=== PATIENT | male | born 1975 ===

== ENCOUNTER 2021-02-25 08:26 | Inpatient (IN) ==
[2021-02-25 09:28] LABS: Basophils % 0.7 % (0.0-0.8); Eosinophils # 0.3 10*3/uL (0.0-0.87); Eosinophils % 5.2 % (0.00-10.9); Hematocrit 25.9 VOL% (42.0-52.0); Hemoglobin 8.4 GM/DL (14.0-18.0); Immature Granulocytes % 0.5 %; Immature Granulocytes Absolute 0.03 #; Lymphocytes # 1.6 10*3/uL (1.4-4.0); Lymphocytes % 27.7 % (21.2-54.2); Mean Corpuscular HGB Conc 32.4 GM/DL (32-36); Mean Platelet Volume 10.3 FL (9.6-12.0); Monocytes % 4.1 % (1.7-12.7); Neutrophils % 61.8 % (38.7-73.9); Platelet Count 109 T/CUMM (130-400); Red Blood Count 2.67 MC/CUMM (3.8-5.5); Red Cell Distribution Width 15.4 % (9.3-17.3); White Blood Count 5.8 T/CUMM (4-12)
[2021-02-25 09:42] LABS: Albumin 2.9 G/DL (3.4-5.0); Bilirubin,Total 0.5 MG/DL (0.20-1.00); Calcium 5.9 MG/DL (8.5-10.1); Osmolality,Calculated 332.3 MOS/KG (273-304); Potassium 4.5 MMOL/L (3.5-5.1); Total Protein 8.3 G/DL (6.4-8.2)
[2021-02-25 09:46] LABS: Hypochromasia 1+; Microcytosis 1+; Platelet Estimate Decreased
[2021-02-25] MEDS ORDERED: DEXTROSE 50% 25 GM/50 ML SYRINGE IV STA (10:41)
[2021-02-25] MEDS ORDERED: GLUCAGON 1 MG VIAL IM PRN (10:43)
[2021-02-25] MEDS ORDERED: ACETAMINOPHEN 325 MG TABLET PO PRN (10:43)
[2021-02-25] MEDS ORDERED: DOCUSATE SODIUM 100 MG CAPSULE PO PRN (10:43)
[2021-02-25] MEDS ORDERED: DEXTROSE 50% 25 GM/50 ML SYRINGE IV PRN (10:43)
[2021-02-25] MEDS ORDERED: ONDANSETRON 4 MG/2 ML VIAL IV PRN (10:43)
[2021-02-25 11:05] LABS: ABG Base Excess -15.5 MMOL/L (-2.5-2.5); ABG HCO3 12.4 MMOL/L (20-26); ABG PCO2 27.2 MM HG (35-48); ABG TCO2 10.6 MMOL/L (23-27)
[2021-02-25 11:55] LABS: Hepatitis B Core IgM Quant 0.11 Index; Hepatitis B Surface Ag Quant < 0.10 Index; Hepatitis B Surface Ag Result Non-Reactive (NonReactive); Hepatitis C Virus Ab Quant 0.27 Index; Hepatitis C Virus Ab Result Non-Reactive (NonReactive)
[2021-02-25] MEDS: HEPARIN 5,000 UNIT/1 ML VIAL SUBCUT SCH (12:02)
[2021-02-25] MEDS ORDERED: HEPARIN 10,000 UNIT/10 ML VIAL IV SCH (13:15)
[2021-02-25] MEDS ORDERED: hydrALAZINE 20 MG/1 ML VIAL IV PRN (16:39)
[2021-02-25 17:37] LABS: Allen Test Positive; Pt O2 Delivery Device Room Air
[2021-02-25 18:07] LABS: ABG Base Excess -3.9 MMOL/L (-2.5-2.5); ABG HCO3 21.2 MMOL/L (20-26); ABG Oxygen Saturation 99.2 % (95-100); ABG PCO2 28.1 MM HG (35-48); ABG PH 7.446 (7.35-7.45)
[2021-02-25] MEDS: amLODIPine 10 MG TABLET PO SCH (18:43)
[2021-02-25 18:52] LABS: Albumin 2.7 G/DL (3.4-5.0); Bilirubin,Total 0.6 MG/DL (0.20-1.00); Calcium 7.1 MG/DL (8.5-10.1); Osmolality,Calculated 301.5 MOS/KG (273-304); Potassium 3.3 MMOL/L (3.5-5.1); Total Protein 7.7 G/DL (6.4-8.2)
[2021-02-25] MEDS ORDERED: MAGNESIUM SULF RIDER 1 GM/100 ML PREMIX IV ONE ×2 (19:02→21:30)
[2021-02-25] MEDS ORDERED: POTASSIUM CHLORIDE 10 MEQ TABLET PO ONE (19:03)
[2021-02-26] MEDS: HEPARIN 5,000 UNIT/1 ML VIAL SUBCUT SCH ×2 (00:59→21:10)
[2021-02-26 05:44] LABS: Albumin 2.6 G/DL (3.4-5.0); Bilirubin,Total 1.1 MG/DL (0.20-1.00); Calcium 6.8 MG/DL (8.5-10.1); Potassium 3.8 MMOL/L (3.5-5.1); Total Protein 7.3 G/DL (6.4-8.2)
[2021-02-26 06:18] LABS: Basophils % 0.6 % (0.0-0.8); Eosinophils # 0.3 10*3/uL (0.0-0.87); Eosinophils % 5.9 % (0.00-10.9); Hematocrit 25.6 VOL% (42.0-52.0); Hemoglobin 8.7 GM/DL (14.0-18.0); Immature Granulocytes % 0.4 %; Immature Granulocytes Absolute 0.02 #; Lymphocytes # 1.6 10*3/uL (1.4-4.0); Lymphocytes % 33.1 % (21.2-54.2); Mean Corpuscular Volume 94.8 FL (87-102); Mean Platelet Volume 10.6 FL (9.6-12.0); Monocytes % 6.5 % (1.7-12.7); Neutrophils % 53.5 % (38.7-73.9); Platelet Count 108 T/CUMM (130-400); Red Cell Distribution Width 14.8 % (9.3-17.3); White Blood Count 4.9 T/CUMM (4-12)
[2021-02-26] MEDS: amLODIPine 10 MG TABLET PO SCH (09:27)
[2021-02-26] MEDS: PANTOPRAZOLE 40 MG TABLET PO SCH (09:28)
[2021-02-26] MEDS: hydrALAZINE 25 MG TABLET PO SCH (21:09)
[2021-02-27 05:39] LABS: Basophils % 0.4 % (0.0-0.8); Eosinophils # 0.3 10*3/uL (0.0-0.87); Eosinophils % 6.4 % (0.00-10.9); Hematocrit 26.1 VOL% (42.0-52.0); Hemoglobin 8.6 GM/DL (14.0-18.0); Immature Granulocytes % 0.2 %; Immature Granulocytes Absolute 0.01 #; Lymphocytes # 1.7 10*3/uL (1.4-4.0); Lymphocytes % 35.3 % (21.2-54.2); Mean Corpuscular Volume 95.3 FL (87-102); Mean Platelet Volume 10.4 FL (9.6-12.0); Monocytes % 7.9 % (1.7-12.7); Neutrophils % 49.8 % (38.7-73.9); Platelet Count 113 T/CUMM (130-400); Red Blood Count 2.74 MC/CUMM (3.8-5.5); Red Cell Distribution Width 14.3 % (9.3-17.3); White Blood Count 4.8 T/CUMM (4-12)
[2021-02-27 06:08] LABS: Calcium 7.4 MG/DL (8.5-10.1); Osmolality,Calculated 289.4 MOS/KG (273-304); Potassium 3.8 MMOL/L (3.5-5.1)
[2021-02-27 06:19] LABS: Hypochromasia 1+; Platelet Estimate Adequate
[2021-02-27] MEDS: hydrALAZINE 25 MG TABLET PO SCH ×3 (09:11→20:56)
[2021-02-27] MEDS: amLODIPine 10 MG TABLET PO SCH (09:11)
[2021-02-27] MEDS: PANTOPRAZOLE 40 MG TABLET PO SCH (09:11)
[2021-02-27] MEDS: HEPARIN 5,000 UNIT/1 ML VIAL SUBCUT SCH ×2 (09:12→20:56)
[2021-02-28 13:16] LABS: Basophils % 0.7 % (0.0-0.8); Eosinophils # 0.4 10*3/uL (0.0-0.87); Eosinophils % 7.6 % (0.00-10.9); Hematocrit 24.5 VOL% (42.0-52.0); Immature Granulocytes % 0.2 %; Immature Granulocytes Absolute 0.01 #; Lymphocytes # 1.7 10*3/uL (1.4-4.0); Lymphocytes % 37.7 % (21.2-54.2); Mean Corpuscular HGB Conc 32.7 GM/DL (32-36); Mean Corpuscular Volume 95.7 FL (87-102); Mean Platelet Volume 10.4 FL (9.6-12.0); Monocytes % 6.3 % (1.7-12.7); Neutrophils % 47.5 % (38.7-73.9); Platelet Count 113 T/CUMM (130-400); Red Blood Count 2.56 MC/CUMM (3.8-5.5); Red Cell Distribution Width 14.6 % (9.3-17.3); White Blood Count 4.6 T/CUMM (4-12)
[2021-02-28] MEDS: hydrALAZINE 25 MG TABLET PO SCH ×3 (13:20→20:14)
[2021-02-28] MEDS: HEPARIN 5,000 UNIT/1 ML VIAL SUBCUT SCH ×2 (13:20→20:14)
[2021-02-28] MEDS: amLODIPine 10 MG TABLET PO SCH (13:20)
[2021-02-28] MEDS: PANTOPRAZOLE 40 MG TABLET PO SCH (13:21)
[2021-02-28 13:47] LABS: Alanine Aminotransferase < 9 U/L (16-61); Alkaline Phosphatase 94 U/L (45-117); Aspartate Amino Transferase 10 U/L (0-37)
[2021-02-28 13:48] LABS: Albumin 2.7 G/DL (3.4-5.0); Blood Urea Nitrogen 52 MG/DL (7-18); Carbon Dioxide 22 MMOL/L (21-32); Estimated Glom Filtration Rate 7 ML/MIN; Glucose 74 MG/DL (74-106); Osmolality,Calculated 289.5 MOS/KG (273-304); Potassium 3.7 MMOL/L (3.5-5.1); Sodium 139 MMOL/L (136-145); Total Protein 7.4 G/DL (6.4-8.2)
[2021-03-01] MEDS: amLODIPine 10 MG TABLET PO SCH (08:34)
[2021-03-01] MEDS: PANTOPRAZOLE 40 MG TABLET PO SCH (08:34)
[2021-03-01] MEDS: hydrALAZINE 25 MG TABLET PO SCH ×3 (08:34→20:35)
[2021-03-01] MEDS: HEPARIN 5,000 UNIT/1 ML VIAL SUBCUT SCH ×2 (08:34→20:35)
[2021-03-02 05:15] LABS: Basophils % 0.3 % (0.0-0.8); Eosinophils # 0.5 10*3/uL (0.0-0.87); Eosinophils % 7.1 % (0.00-10.9); Hematocrit 24.9 VOL% (42.0-52.0); Hemoglobin 8.2 GM/DL (14.0-18.0); Immature Granulocytes % 0.3 %; Immature Granulocytes Absolute 0.02 #; Lymphocytes # 1.9 10*3/uL (1.4-4.0); Lymphocytes % 29.3 % (21.2-54.2); Mean Corpuscular HGB Conc 32.9 GM/DL (32-36); Monocytes % 6.8 % (1.7-12.7); Neutrophils % 56.2 % (38.7-73.9); Platelet Count 123 T/CUMM (130-400); Red Blood Count 2.62 MC/CUMM (3.8-5.5); Red Cell Distribution Width 14.6 % (9.3-17.3); White Blood Count 6.4 T/CUMM (4-12)
[2021-03-02 05:34] LABS: Calcium 7.4 MG/DL (8.5-10.1); Osmolality,Calculated 281.7 MOS/KG (273-304); Potassium 4.7 MMOL/L (3.5-5.1)
[2021-03-02 05:38] LABS: % Iron Saturation 29.9 % (18-50); Ferritin 562.4 ng/mL (26-388)
[2021-03-02] MEDS: hydrALAZINE 25 MG TABLET PO SCH (09:22)
[2021-03-02] MEDS: amLODIPine 10 MG TABLET PO SCH (09:22)
[2021-03-02] MEDS: PANTOPRAZOLE 40 MG TABLET PO SCH (09:22)
[2021-03-02] MEDS: HEPARIN 5,000 UNIT/1 ML VIAL SUBCUT SCH (09:22)
[2021-03-02 12:36] VITALS: BP 135/66
== END 2021-03-02 13:40 | disposition home or self-care (01) | DRG 682 ==
LOC: N.ED 08:26 → SUATTDRO 10:43 → N.EDINP 10:43 → N.5E 19:09
PROVIDERS: ADMIT Internal Medicine; ATTEND Internal Medicine

== ENCOUNTER 2021-08-05 07:59 | Inpatient (IN) ==
[2021-08-05] MEDS ORDERED: DEXTROSE 10% 250 ML BAG IV PRN (12:00)
[2021-08-05] MEDS ORDERED: ONDANSETRON 4 MG/2 ML VIAL IV PRN (12:00)
[2021-08-05] MEDS ORDERED: GLUCAGON 1 MG VIAL IM PRN (12:00)
[2021-08-05] MEDS ORDERED: hydrALAZINE 20 MG/1 ML VIAL IV PRN (12:00)
[2021-08-05] MEDS ORDERED: ACETAMINOPHEN 325 MG TABLET PO PRN (12:00)
[2021-08-05] MEDS ORDERED: ALBUTEROL/IPRATROPIUM 3 ML NEB RESP TX PRN (12:16)
[2021-08-05] MEDS ORDERED: SEVELAMER CARBONATE 800 MG TABLET PO SCH (12:30)
[2021-08-05 12:33] LABS: Eosinophils # 0.3 10*3/uL (0.0-0.87); Eosinophils % 6.6 % (0.00-10.9); Hematocrit 28.4 VOL% (42.0-52.0); Immature Granulocytes % 0.2 %; Immature Granulocytes Absolute 0.01 #; Lymphocytes # 1.5 10*3/uL (1.4-4.0); Lymphocytes % 37.4 % (21.2-54.2); Mean Corpuscular HGB Conc 31.7 GM/DL (32-36); Mean Corpuscular Volume 94.7 FL (87-102); Mean Platelet Volume 10.2 FL (9.6-12.0); Monocytes # 0.2 10*3/uL (0.11-0.8); Monocytes % 4.4 % (1.7-12.7); Neutrophils % 50.4 % (38.7-73.9); Platelet Count 115 T/CUMM (130-400); Red Cell Distribution Width 16.4 % (9.3-17.3); White Blood Count 4.1 T/CUMM (4-12)
[2021-08-05 12:52] LABS: Albumin 2.7 G/DL (3.4-5.0); Bilirubin,Total 0.5 MG/DL (0.20-1.00); Calcium 7.1 MG/DL (8.5-10.1); Osmolality,Calculated 304.1 MOS/KG (273-304); Potassium 4.4 MMOL/L (3.5-5.1); Total Protein 7.6 G/DL (6.4-8.2)
[2021-08-05 13:34] LABS: INR 1.1; PT Patient Result 11.7 SECS (10.5-12.0)
[2021-08-05 15:42] LABS: Glucose,Pleural Fluid 101 MG/DL; LDH,Body Fluid 115 U/L; Total Protein,Body Fluid 2.3 G/DL
[2021-08-05] MEDS: INSULIN LISPRO 100 UNIT/ML SUBCUT SCH ×2 (15:58→21:49)
[2021-08-05] MEDS: carvediloL 3.125 MG TABLET PO SCH (16:07)
[2021-08-05] MEDS: SEVELAMER CARBONATE 800 MG TABLET PO SCH (16:07)
[2021-08-05 16:11] LABS: Eosinophils,Pleural Fluid 28 %; Lymphocytes,Pleural Fluid 35 %; Monocytes,Pleural Fluid 36 %; Neutrophils,Pleural Fluid 1 %; RBC,Pleural Fluid 31 T/CUMM
[2021-08-06 05:15] LABS: Basophils % 0.7 % (0.0-0.8); Eosinophils # 0.4 10*3/uL (0.0-0.87); Hematocrit 26.2 VOL% (42.0-52.0); Hemoglobin 8.5 GM/DL (14.0-18.0); Immature Granulocytes % 0.4 %; Immature Granulocytes Absolute 0.02 #; Lymphocytes # 1.9 10*3/uL (1.4-4.0); Lymphocytes % 35.4 % (21.2-54.2); Mean Corpuscular HGB Conc 32.4 GM/DL (32-36); Mean Corpuscular Volume 91.9 FL (87-102); Mean Platelet Volume 10.9 FL (9.6-12.0); Monocytes # 0.3 10*3/uL (0.11-0.8); Monocytes % 6.1 % (1.7-12.7); Neutrophils % 50.4 % (38.7-73.9); Platelet Count 103 T/CUMM (130-400); Red Blood Count 2.85 MC/CUMM (3.8-5.5); White Blood Count 5.4 T/CUMM (4-12)
[2021-08-06 05:30] LABS: Calcium 6.9 MG/DL (8.5-10.1); Osmolality,Calculated 303.4 MOS/KG (273-304); Potassium 4.8 MMOL/L (3.5-5.1)
[2021-08-06] MEDS ORDERED: PANTOPRAZOLE 40 MG TABLET PO SCH (06:30)
[2021-08-06] MEDS: carvediloL 3.125 MG TABLET PO SCH (08:28)
[2021-08-06] MEDS: SEVELAMER CARBONATE 800 MG TABLET PO SCH ×2 (08:28→12:17)
[2021-08-06] MEDS ORDERED: lisinopriL 2.5 MG TABLET PO SCH (09:00)
[2021-08-06 12:03] VITALS: BP 137/86
[2021-08-06] MEDS: INSULIN LISPRO 100 UNIT/ML SUBCUT SCH (12:10)
== END 2021-08-06 12:57 | disposition home or self-care (01) | DRG 291 ==
LOC: N.5E → SUATTDRO 12:00
PROVIDERS: ADMIT Internal Medicine; ATTEND Emergency Medicine

== ENCOUNTER 2021-08-13 10:29 | Inpatient (IN) ==
[2021-08-13] MEDS ORDERED: GLUCAGON 1 MG VIAL IM PRN ×2 (15:25)
[2021-08-13] MEDS ORDERED: ONDANSETRON 4 MG/2 ML VIAL IV PRN (15:25)
[2021-08-13] MEDS ORDERED: DEXTROSE 50% 25 GM/50 ML VIAL IV PRN (15:25)
[2021-08-13] MEDS ORDERED: DEXTROSE 10% 250 ML BAG IV PRN (15:37)
[2021-08-13] MEDS: HEPARIN 5,000 UNIT/1 ML VIAL SUBCUT SCH (15:50)
[2021-08-14] MEDS: HEPARIN 5,000 UNIT/1 ML VIAL SUBCUT SCH ×2 (04:26→16:42)
[2021-08-14 05:52] LABS: Basophils % 0.7 % (0.0-0.8); Eosinophils # 0.4 10*3/uL (0.0-0.87); Eosinophils % 8.3 % (0.00-10.9); Hemoglobin 8.5 GM/DL (14.0-18.0); Lymphocytes # 1.7 10*3/uL (1.4-4.0); Lymphocytes % 36.5 % (21.2-54.2); Mean Corpuscular HGB Conc 32.7 GM/DL (32-36); Mean Corpuscular Volume 91.9 FL (87-102); Monocytes # 0.3 10*3/uL (0.11-0.8); Monocytes % 5.5 % (1.7-12.7); Platelet Count 107 T/CUMM (130-400); Red Blood Count 2.83 MC/CUMM (3.8-5.5); Red Cell Distribution Width 16.6 % (9.3-17.3); White Blood Count 4.6 T/CUMM (4-12)
[2021-08-14 06:11] LABS: Albumin 2.5 G/DL (3.4-5.0); Bilirubin,Total 0.4 MG/DL (0.20-1.00); Calcium 7.3 MG/DL (8.5-10.1); Osmolality,Calculated 309.1 MOS/KG (273-304); Potassium 4.6 MMOL/L (3.5-5.1); Total Protein 7.3 G/DL (6.4-8.2)
[2021-08-14] MEDS: PANTOPRAZOLE 40 MG TABLET PO SCH (08:23)
[2021-08-14] MEDS ORDERED: SEVELAMER CARBONATE 800 MG TABLET PO SCH (12:30)
[2021-08-14] MEDS: SEVELAMER CARBONATE 800 MG TABLET PO SCH (16:41)
[2021-08-14] MEDS: carvediloL 3.125 MG TABLET PO SCH (17:17)
[2021-08-14] MEDS ORDERED: HEPARIN 10,000 UNIT/10 ML VIAL IV PRN (17:36)
[2021-08-15] MEDS: HEPARIN 5,000 UNIT/1 ML VIAL SUBCUT SCH ×2 (04:37→16:08)
[2021-08-15 05:17] LABS: Basophils % 0.7 % (0.0-0.8); Eosinophils # 0.3 10*3/uL (0.0-0.87); Eosinophils % 7.3 % (0.00-10.9); Hematocrit 25.5 VOL% (42.0-52.0); Hemoglobin 8.3 GM/DL (14.0-18.0); Lymphocytes # 1.8 10*3/uL (1.4-4.0); Lymphocytes % 40.9 % (21.2-54.2); Mean Corpuscular HGB Conc 32.5 GM/DL (32-36); Mean Corpuscular Volume 90.4 FL (87-102); Mean Platelet Volume 10.4 FL (9.6-12.0); Monocytes # 0.3 10*3/uL (0.11-0.8); Monocytes % 6.1 % (1.7-12.7); Platelet Count 97 T/CUMM (130-400); Red Blood Count 2.82 MC/CUMM (3.8-5.5); White Blood Count 4.4 T/CUMM (4-12)
[2021-08-15 05:34] LABS: Albumin 2.3 G/DL (3.4-5.0); Bilirubin,Total 0.5 MG/DL (0.20-1.00); Calcium 7.7 MG/DL (8.5-10.1); Osmolality,Calculated 299.1 MOS/KG (273-304); Total Protein 6.9 G/DL (6.4-8.2)
[2021-08-15 06:23] LABS: Eosinophils 6 % (0-10); Lymphocytes 30 % (20-55); Total Cells Counted 100
[2021-08-15 06:24] LABS: Platelet Estimate Decreased
[2021-08-15] MEDS: PANTOPRAZOLE 40 MG TABLET PO SCH (09:26)
[2021-08-15] MEDS: SEVELAMER CARBONATE 800 MG TABLET PO SCH ×3 (09:26→16:42)
[2021-08-15] MEDS: carvediloL 3.125 MG TABLET PO SCH ×2 (09:27→16:39)
[2021-08-16] MEDS: HEPARIN 5,000 UNIT/1 ML VIAL SUBCUT SCH (04:11)
[2021-08-16 06:00] LABS: Basophils % 0.6 % (0.0-0.8); Eosinophils # 0.3 10*3/uL (0.0-0.87); Hematocrit 25.2 VOL% (42.0-52.0); Hemoglobin 8.2 GM/DL (14.0-18.0); Immature Granulocytes % 0.4 %; Immature Granulocytes Absolute 0.02 #; Lymphocytes # 2.1 10*3/uL (1.4-4.0); Lymphocytes % 42.7 % (21.2-54.2); Mean Corpuscular HGB Conc 32.5 GM/DL (32-36); Mean Corpuscular Volume 92.3 FL (87-102); Mean Platelet Volume 10.7 FL (9.6-12.0); Monocytes # 0.3 10*3/uL (0.11-0.8); Monocytes % 5.7 % (1.7-12.7); Neutrophils % 43.6 % (38.7-73.9); Platelet Count 98 T/CUMM (130-400); Red Blood Count 2.73 MC/CUMM (3.8-5.5); Red Cell Distribution Width 16.1 % (9.3-17.3); White Blood Count 4.9 T/CUMM (4-12)
[2021-08-16 06:23] LABS: Calcium 7.3 MG/DL (8.5-10.1); Osmolality,Calculated 302.1 MOS/KG (273-304); Potassium 4.7 MMOL/L (3.5-5.1)
[2021-08-16 06:24] LABS: Hypochromia Slight; Microcytosis Slight; Platelet Estimate Decreased
[2021-08-16 06:28] LABS: Albumin 2.4 G/DL (3.4-5.0); Bilirubin,Total 0.5 MG/DL (0.20-1.00); Calcium 7.7 MG/DL (8.5-10.1); Osmolality,Calculated 301.3 MOS/KG (273-304); Potassium 4.7 MMOL/L (3.5-5.1)
[2021-08-16] MEDS: SEVELAMER CARBONATE 800 MG TABLET PO SCH ×3 (08:40→18:28)
[2021-08-16] MEDS: PANTOPRAZOLE 40 MG TABLET PO SCH (08:41)
[2021-08-16] MEDS: carvediloL 3.125 MG TABLET PO SCH ×2 (08:41→18:28)
[2021-08-16 10:59] LABS: PT Patient Result 11.4 SECS (10.5-12.0)
[2021-08-16] MEDS ORDERED: HEPARIN 10,000 UNIT/10 ML VIAL IV PRN (15:00)
[2021-08-16] MEDS ORDERED: EPOETIN ALFA-EPBX 10,000 UNIT/ML VIAL IV SCH (17:00)
[2021-08-17 06:25] LABS: Basophils % 0.4 % (0.0-0.8); Eosinophils # 0.4 10*3/uL (0.0-0.87); Eosinophils % 8.5 % (0.00-10.9); Hematocrit 25.5 VOL% (42.0-52.0); Hemoglobin 8.4 GM/DL (14.0-18.0); Immature Granulocytes % 0.2 %; Immature Granulocytes Absolute 0.01 #; Lymphocytes # 1.8 10*3/uL (1.4-4.0); Lymphocytes % 35.8 % (21.2-54.2); Mean Corpuscular HGB Conc 32.9 GM/DL (32-36); Mean Corpuscular Volume 92.4 FL (87-102); Mean Platelet Volume 10.6 FL (9.6-12.0); Monocytes # 0.3 10*3/uL (0.11-0.8); Monocytes % 6.7 % (1.7-12.7); Neutrophils % 48.4 % (38.7-73.9); Platelet Count 97 T/CUMM (130-400); Red Blood Count 2.76 MC/CUMM (3.8-5.5); Red Cell Distribution Width 16.1 % (9.3-17.3); White Blood Count 5.1 T/CUMM (4-12)
[2021-08-17 06:46] LABS: Hypochromia 1+; Microcytosis 1+; Platelet Estimate Decreased
[2021-08-17 07:01] LABS: Osmolality,Calculated 281.7 MOS/KG (273-304); Potassium 4.9 MMOL/L (3.5-5.1)
[2021-08-17 07:03] LABS: % Iron Saturation 47.2 % (18-50); Ferritin 633.9 ng/mL (26-388)
[2021-08-17] MEDS: SEVELAMER CARBONATE 800 MG TABLET PO SCH ×3 (08:18→16:11)
[2021-08-17] MEDS: carvediloL 3.125 MG TABLET PO SCH ×2 (08:19→16:12)
[2021-08-17] MEDS: PANTOPRAZOLE 40 MG TABLET PO SCH (08:19)
[2021-08-17 11:05] LABS: Amylase,Pleural Fluid 29 U/L; Glucose,Pleural Fluid 95 MG/DL; LDH,Pleural Fluid 77 U/L; Total Protein,Pleural Fluid 2.1 G/DL
[2021-08-17 11:15] LABS: RBC,Pleural Fluid 93 T/CUMM
[2021-08-18 03:41] LABS: Basophils % 0.5 % (0.0-0.8); Eosinophils # 0.5 10*3/uL (0.0-0.87); Eosinophils % 7.9 % (0.00-10.9); Hematocrit 25.5 VOL% (42.0-52.0); Hemoglobin 8.3 GM/DL (14.0-18.0); Immature Granulocytes % 0.3 %; Immature Granulocytes Absolute 0.02 #; Lymphocytes # 1.9 10*3/uL (1.4-4.0); Lymphocytes % 32.9 % (21.2-54.2); Mean Corpuscular HGB Conc 32.5 GM/DL (32-36); Mean Corpuscular Volume 92.4 FL (87-102); Mean Platelet Volume 10.8 FL (9.6-12.0); Monocytes # 0.4 10*3/uL (0.11-0.8); Monocytes % 6.4 % (1.7-12.7); Platelet Count 96 T/CUMM (130-400); Red Blood Count 2.76 MC/CUMM (3.8-5.5); Red Cell Distribution Width 15.7 % (9.3-17.3); White Blood Count 5.8 T/CUMM (4-12)
[2021-08-18 03:58] LABS: Calcium 7.6 MG/DL (8.5-10.1); Osmolality,Calculated 284.8 MOS/KG (273-304); Potassium 5.3 MMOL/L (3.5-5.1)
[2021-08-18] MEDS: carvediloL 3.125 MG TABLET PO SCH ×2 (08:25→17:23)
[2021-08-18] MEDS: SEVELAMER CARBONATE 800 MG TABLET PO SCH ×3 (08:26→17:22)
[2021-08-18] MEDS: PANTOPRAZOLE 40 MG TABLET PO SCH (08:26)
[2021-08-18 18:08] LABS: Calcium 8.4 MG/DL (8.5-10.1); Osmolality,Calculated 268.4 MOS/KG (273-304); Potassium 4.4 MMOL/L (3.5-5.1)
[2021-08-19 05:16] LABS: Basophils % 0.5 % (0.0-0.8); Eosinophils # 0.4 10*3/uL (0.0-0.87); Eosinophils % 6.2 % (0.00-10.9); Hematocrit 27.6 VOL% (42.0-52.0); Hemoglobin 8.6 GM/DL (14.0-18.0); Immature Granulocytes % 0.3 %; Immature Granulocytes Absolute 0.02 #; Lymphocytes # 2.2 10*3/uL (1.4-4.0); Lymphocytes % 33.7 % (21.2-54.2); Mean Corpuscular HGB Conc 31.2 GM/DL (32-36); Mean Corpuscular Volume 93.2 FL (87-102); Mean Platelet Volume 10.7 FL (9.6-12.0); Monocytes # 0.4 10*3/uL (0.11-0.8); Monocytes % 5.6 % (1.7-12.7); Neutrophils % 53.7 % (38.7-73.9); Platelet Count 94 T/CUMM (130-400); Red Blood Count 2.96 MC/CUMM (3.8-5.5); Red Cell Distribution Width 15.2 % (9.3-17.3); White Blood Count 6.4 T/CUMM (4-12)
[2021-08-19 05:36] LABS: Platelet Estimate Decreased
[2021-08-19 05:42] LABS: Calcium 7.9 MG/DL (8.5-10.1); Osmolality,Calculated 274.2 MOS/KG (273-304); Potassium 4.2 MMOL/L (3.5-5.1)
[2021-08-19] MEDS: PANTOPRAZOLE 40 MG TABLET PO SCH ×2 (07:52→08:01)
[2021-08-19] MEDS: carvediloL 3.125 MG TABLET PO SCH (07:52)
[2021-08-19] MEDS: SEVELAMER CARBONATE 800 MG TABLET PO SCH (07:52)
[2021-08-19 08:01] VITALS: BP 121/78
[2021-08-19 16:50] LABS: CEA, Pleural Fluid < 0.5 ng/mL
== END 2021-08-19 10:55 | disposition home or self-care (01) | DRG 186 ==
LOC: N.3E 14:54 → SUATTDRO 14:54
PROVIDERS: ADMIT Internal Medicine; ATTEND Family Medicine